=== PATIENT | male | born 1980 | race Caucasian/White ===

== ENCOUNTER 2019-06-02 13:34 | Emergency (ER) | payer SELFPAY ==
[2019-06-02] MEDS ORDERED: LIDOCAINE 1%/EPI (MDV) 50 ML INJ INJ (14:30)
[2019-06-02] MEDS ORDERED: LIDOCAINE 1% (MDV) 10 ML INJ INJ (14:38)
[2019-06-02] MEDS ORDERED: LIDOCAINE 1% (MDV) 20 ML INJ INJ (14:51)
[2019-06-02] MEDS: CEFAZOLIN 1 GM INJ IM (14:59)
[2019-06-02] MEDS: DIPHTH/TET/ACEL PERTUSS (ADULT) 0.5 ML VIAL IM* (14:59)
== END 2019-06-02 17:05 | disposition home or self-care (01) ==
LOC: E/R 13:34
DX: S51.812A Laceration without foreign body of left forearm, initial encounter (principal); W29.3XXA Contact with powered garden and outdoor hand tools and machinery, initial encounter; Y92.9 Unspecified place or not applicable; Z23 Encounter for immunization
CPT/HCPCS: 12002; 73090; 90471; 90715; 96372; 99284-25

== ENCOUNTER 2019-06-04 10:41 | Emergency (ER) | payer SELFPAY | END 2019-06-04 11:47 | disposition home or self-care (01) | LOC: FTE 11:47 | DX: Z48.01 Encounter for change or removal of surgical wound dressing (principal) | CPT/HCPCS: 99281 ==